=== PATIENT | female | born 1945 | race Caucasian/White ===

== ENCOUNTER 2022-04-02 08:33 | Outpatient (CLI) | payer MEDICARE, SELFPAY ==
--- NOTE | ~2022-04-02 | CT_ITS ---
EXAMINATION: CT LE RT wo con DATE: 04/02/2022 09:13 INDICATION: Right knee primary osteoarthritis. TECHNIQUE: Computed tomography (CT) of the right lower limb was performed without intravenous contras t. Automated exposure control and iterative reconstruction technique were employed. The dose-length p roduct was 1470.83 mGy-cm. COMPARISON: Right knee radiographs 03/11/2022 FINDINGS: Right hip demonstrate normal bone alignment. No fracture. There is moderate right hip osteo arthritis. Right knee demonstrates severe osteoarthritis of the medial and patellofemoral compartment s and mild osteoarthritis of the lateral compartment. There is a small knee joint effusion. There is a moderate-sized Tay's cyst. The talar dome is normal. IMPRESSION: 1. Severe right knee osteoarthritis. 2. Small right knee joint effusion. 3. Moderate-sized right Tay's cyst. 4. Moderate right hip osteoarthritis. Reviewed, dictated and finalized at location A.
== END 2022-04-02 08:34 | disposition home or self-care (01) ==
PROVIDERS: PCP Orthopaedic Surgery; Visit Provider Orthopaedic Surgery
DX: M17.11 Unilateral primary osteoarthritis, right knee (principal); M25.461 Effusion, right knee; M71.21 Synovial cyst of popliteal space [Baker], right knee; M16.11 Unilateral primary osteoarthritis, right hip
CPT/HCPCS: 73700

== ENCOUNTER 2022-04-05 08:52 | Outpatient (CLI) | payer MEDICARE, SELFPAY ==
--- NOTE | 2022-04-05 | ECG_ITS ---
Measurements Intervals [place] Rate: 81 P: 56 SD: 135 QRS: 8 QRSD: 90 T: 36 QT: 347 QTc: 404 Interpretive Statements SINUS RHYTHM NORMAL ECG NO PREVIOUS ECG AVAILABLE FOR COMPARISON Electronically Signed On 04-05-2022 17:00:27 CDT by Juice Gallegos M.D.
[2022-04-05 09:37] LABS: Hematocrit 41.2 % (37.0-47.0); Hemoglobin 13.7 g/dL (12.0-15.0)
[2022-04-05 09:47] LABS: Albumin Level 4.2 g/dL (3.5-5.1); Estimated Glomerular Filt Rate > 60; Glucose 101 mg/dL (65-110)
== END 2022-04-05 08:53 | disposition home or self-care (01) ==
LOC: ANHLAB 08:57
PROVIDERS: PCP Internal Medicine; Visit Provider Orthopaedic Surgery
DX: Z01.818 Encounter for other preprocedural examination (principal); M17.11 Unilateral primary osteoarthritis, right knee; I10 Essential (primary) hypertension
CPT/HCPCS: 36415; 82040; 82565; 82947; 85014; 85018; 93005

== ENCOUNTER 2022-05-05 07:52 | Outpatient (CLI) | payer MEDICARE, SELFPAY ==
[2022-05-05 09:31] LABS: Basophils Absolute Auto 0.1 K/mm3 (0.0-0.1); Basophils Percent Auto 1.4 % (0.2-1.2); Eosinophils Absolute Auto 0.6 K/mm3 (0-0.3); Eosinophils Percent Auto 6.9 % (0-4.4); Hematocrit 43.5 % (37.0-47.0); Hemoglobin 14.2 g/dL (12.0-15.0); Immature Granulocyte Absolute 0.02 K/mm3 (0.00-0.031); Immature Granulocyte Percent A 0.2 % (0-0.5); Lymphocytes Absolute Auto 1.75 K/mm3 (0.9-3.2); Lymphocytes Percent Auto 21.8 % (18.3-44.2); Mean Corpuscular HGB Conc 32.6 g/dl (32-36); Mean Corpuscular Hemoglobin 31.4 pg (26-34); Mean Corpuscular Volume 96.2 fl (80-100); Mean Platelet Volume 9.4 fl (7.4-10.4); Monocytes Absolute Auto 0.6 K/mm3 (0.1-0.6); Monocytes Percent Auto 7.9 % (2.6-8.5); Neutrophils Percent Auto 61.8 % (45.5-73.1); Platelet Count Result 282 k/mm3 (150-375); Red Blood Count 4.52 M/mm3 (4.2-5.4); Red Cell Distribution Width 13.2 % (11.5-14.5)
[2022-05-05 09:57] LABS: Anion Gap 8 mmol/L (8-16); Blood Urea Nitrogen 19 mg/dL (7-17); Calcium 9.6 mg/dL (8.4-10.2); Carbon Dioxide 31 mmol/L (22-30); Chloride 99 mmol/L (98-107); Estimated Glomerular Filt Rate > 60; Glucose 105 mg/dL (65-110); Potassium 3.8 mmol/L (3.4-5.0); Sodium 138 mmol/L (137-145)
[2022-05-05 10:12] LABS: Urine Cotinine NEGATIVE
[2022-05-05 10:28] LABS: Hemoglobin A1C 5.7 % (<5.7)
== END 2022-05-05 07:53 | disposition home or self-care (01) ==
LOC: ANHSURGERY 08:06
PROVIDERS: Anesthesiology; PCP Internal Medicine; Visit Provider Orthopaedic Surgery
DX: Z01.812 Encounter for preprocedural laboratory examination (principal); M17.11 Unilateral primary osteoarthritis, right knee; Z51.81 Encounter for therapeutic drug level monitoring; Z79.899 Other long term (current) drug therapy
CPT/HCPCS: 80048; 80307; 83036; 85025; 87081

== ENCOUNTER 2022-06-01 00:54 | Day surgery (SDC) | payer MEDICARE, SELFPAY ==
--- NOTE | 2022-05-05 07:49 | PC.NURSE ---
PRE-OP INSTRUCTIONS, PLEASE READ CAREFULLY Report to the Outpatient Waiting Room, entrance under the green pavilion located off [facility], at time _0600_ on date _06/01/22_. OR Time: _0730_. PACK A SMALL OVERNIGHT BAG AND LEAVE IN THE CAR. Time changes happen often and if your time is changed the preop area will call you the afternoon before. - You and your visitor will be asked to self-screen and do not enter if you have any COVID symptoms. - A mask is required within the hospital. -Only one visitor and NO children visitors are allowed at this time. - The patient visitor is requested to leave or wait in car when not with patient due to restrictions. - VISITING HOURS 10AM-8PM, PARK IN FRONT PARKING LOT AND USE MAIN HOSPITAL ENTRANCE 1 Patients may have clear liquids (water, carbonated beverages, clear teas, apple juice) until 3 hours prior to surgery (0430 AM) with a maximum of 20 ounces. - No food from midnight until time of surgery Take the following medications with a SIP of water the morning of surgery: _FELODIPINE, METOPROLOL, TRAMADOL IF NEEDED_ Medications to discontinue per DR. MORALES - _DICLOFENAC 7 DAYS PRIOR TO SURGERY, Date to take last dose 05/24/22_ Medications to discontinue per ANESTHESIA - _VITAMINS 3 DAYS PRIOR TO SURGERY, Date to take last dose 05/28/22_ Please no make-up, nail south african, hairspray, perfume, deodorant, or body powder the day of surgery. No jewelry (including any body piercings) or valuables the day of surgery, leave them at home. Please take a shower or bath the night before, or the morning of, surgery with an antibacterial soap. Wear comfortable, loose fitting clothing. - Jewelry must be removed prior to entering the operating room. Rings and piercings that are not removed may be cut off. - The hospital will not accept responsibility for valuables. - Please leave all valuables, including medications, at home the day of surgery. If you are going home after surgery, a licensed crew car driver must drive you home. - NO public transportation without another adult. - We recommend that an adult stay with you for 24 hours following discharge. - We also recommend that you do not drive, make important decision, drink alcoholic beverages, or take any drugs that were not prescribed by your health care provider for at least 24 hours after your discharge time. Follow any additional instructions given to you from your surgeon. TOTAL JOINT CLASS 05/12/22 @ 1000AM, PARK IN FRONT PARKING LOT AND USE MAIN HOSPITAL ENTRANCE 1 - LOWER LEVEL If you or anyone in your household have experienced Covid symptoms in the past week, please notify your surgeon or the nurse liaison at the phone number below for possible testing. Instructions given to ___PT and asked if any additional questions and then verbalized understanding. Patient advised to call surgeon office or pre surgery nurse liaison [phone] if any additional questions.
[2022-05-05 08:33] VITALS: BP 168/90; PULSE 84; RESP 18; TEMP 36.8; O2SAT 97; BMI 29.4
--- NOTE | 2022-05-31 09:53 | WPDANESEPPF ---
Anes - Initial Pre Proc Eval Procedure: Operation Date: 06/01/22 07:30 Proposed Procedures p Right Custom Total Knee Arthroplasty - Conner Pink MD Date/Time: 05/31/22 09:53 Surgeon: Conner Pink MD Pre Op Diagnosis: Prim O A Right Knee Patient Data Age: 77 Gender: F Height: 1.54 m Weight: 69.5 kg Last Vital Signs Temp 36.8 C 05/05/22 08:33 Pulse 84 05/05/22 08:33 Resp 18 05/05/22 08:33 BP 168/90 H 05/05/22 08:33 Pulse Ox 97 05/05/22 08:33 O2 Del Method Room Air 05/05/22 08:33 Allergies Allergy/AdvReac Type Severity Reaction Status Date / Time moxifloxacin Allergy Unknown Rash Verified 06/01/22 06:02 Home Medications Medication Instructions Recorded Confirmed Type diclofenac sodium 75 mg 75 mg PO BID 06/26/21 06/01/22 History tablet,delayed release felodipine 5 mg tablet,extended 5 mg PO DAILY 06/26/21 06/01/22 History release 24 hr hydrochlorothiazide 25 mg tablet 12.5 mg PO DAILY 06/26/21 06/01/22 History losartan 100 mg tablet 100 mg PO DAILY 06/26/21 06/01/22 History metoprolol succinate 100 mg 100 mg PO DAILY 06/26/21 06/01/22 History tablet,extended release 24 hr tramadol 50 mg tablet 50 mg PO Q6H PRN Pain 06/26/21 06/01/22 History ascorbic acid (vitamin C) 250 mg 250 mg PO QAM 05/05/22 06/01/22 History tablet (Vitamin C) calcium 500 mg tablet 1,000 mg QAM 05/05/22 06/01/22 History cholecalciferol (vitamin D3) 25 25 mcg PO QAM 05/05/22 06/01/22 History mcg (1,000 unit) capsule multivitamin 2 tablet PO QAM 05/05/22 06/01/22 History ECG: Date of Service: 04/05/22 Procedure(s): CA 12 lead EKG Accession Number(s): [id number] cc: ~ ? Measurements Intervals? [place]? Rate: ? 81 ? P:? 56 [place]: ? 135? QRS:? 8 QRSD: ? 90 ? T:? 36 QT: ? 347? QTc:? 404? Interpretive Statements SINUS RHYTHM NORMAL ECG NO PREVIOUS ECG AVAILABLE FOR COMPARISON Electronically Signed On 04-05-2022 17:00:27 CDT by Juice Gallegos M.D. Patient hx anesthesia problems: none Family hx anesthesia problems: none Results Review: All pre-operative results and documents have been reviewed as part of the pre-operative evaluation. [facility] Past Medical History Medical History (Updated 05/31/22 @ 09:54 by Erik Calvillo MD) Arthritis of right knee Chronic GERD History of stress test Hypertension PONV (postoperative nausea and vomiting) Surgical History Surgical History History of meniscectomy of left knee (~2013) History of thyroid surgery (~1998) Cyst Removed Hx of meniscectomy of right knee Social History Social History Smoking status: Never smoker Second hand tobacco smoke exposure: Yes Additional smoking assessment comments: PT DENIES ALL FORMS OF TOBACCO USE Alcohol intake: never Substance use: never Substance use type: does not use Living arrangements: with family Spiritual care concerns: No Anes - Eval Final PreProcedure Day of Procedure 05/31/22 09:53 Patient weight: overweight Heart: regular rate and rhythm Lungs: clear to auscultation and normal air movement Airway: Mallampati scale class II Neurological: alert and oriented Last oral intake: >/= 8 hours ASA classification: III Emergent: no Anesthetic plan: proceed Anesthesia type and monitoring: general LMA Results Review: All pre-operative results and documents have been reviewed as part of the pre-operative evaluation. Informed Consent: The patient's anesthetic plan and its attendant risks and benefits were discussed with the patient/family/POA. Questions were solicit
--- NOTE | 2022-05-31 09:55 | WPDANESPNB ---
Anes - Peripheral Nerve Block Date/Time: 05/31/22 09:55 I have discussed with the patient/family/POA the placement of a peripheral nerve block for post-operative pain management, including associated risks, benefits, complications, and side effects. Alternative methods of post-operative analgesia were detailed. Questions were solicited and answers provided to the satisfaction of the patient/family/POA. Time-Out: A pre-procedural Time-Out was completed immediately before starting the procedure and confirmed: Patient Identification, Site, Procedure, Patient Position and the Availability of Requisite Equipment. Clinical Indications: Acute post-operative pain management requested by the operative surgeon. Nerve Block Insertion Note Anes-nerve block: adductor canal right Patient position: supine Skin prep: chlorhexidine Needle: 22 gauge, stimulating, insulated echogenic needle. Needle length: 80 mm Technique: ultrasound Technique comment: in plane Injectate: bupivacaine 0.5% with epi 5 mcg/ml (30cc) Observations: tolerated well Complications: none Procedure start time:: 725 Procedure end time:: 730
[2022-06-01] VITALS (16 sets, daily range): BP systolic 105–151; BP diastolic 64–102; PULSE 90–102; RESP 14–21; TEMP 36.3–37.4; O2SAT 91–100
--- NOTE | ~2022-06-01 | XR_ITS ---
EXAMINATION: XR knee RT 2V DATE: 06/01/2022 10:44 INDICATION: Postoperative evaluation following right total knee arthroplasty. TECHNIQUE: Anteroposterior and lateral views of the right knee were obtained. COMPARISON: 03/11/2022 FINDINGS: Right total knee arthroplasty with patellar resurfacing appears well seated and in near anatomic alig nment. No fractures identified. Expected postoperative subcutaneous and intra-articular gas. IMPRESSION: 1. Right total knee arthroplasty, negative for postoperative purposes. Reviewed, dictated and finalized at location A.
[2022-06-01] MEDS: ACETAMINOPHEN 500 MG TABLET 1000 MG PO (06:16)
[2022-06-01] MEDS: LACTATED RINGERS 1,000 ML 30 ML IV CONT ×2 (06:42→10:04)
[2022-06-01] MEDS: TRANEXAMIC ACID 1,000MG/ISO100 1,000 MG/100 ML BAG 200 MG IVPB (06:57)
--- NOTE | 2022-06-01 07:26 | WPDHPUPDATE1 ---
History and Physical Update Update Date/Time: 06/01/22 07:26 History and Physical has been reviewed, including an updated exam of the patient. There are NO changes in the patient's condition. Risks, benefits, and alternatives have been discussed and questions answered. Patient agrees to proceed with procedure.
[2022-06-01] MEDS: ceFAZolin 2 GM/D5W 50 ML 2 GM/50 ML BAG IVPB ×2 (07:38→15:38)
[2022-06-01] MEDS: GENTAMICIN BONE CEMENT REFOBACIN 1 EACH TOPICAL (08:10)
[2022-06-01] MEDS: MIDAZOLAM HCL (*CRX) 2 MG/2 ML VIAL 1 MG IV PUSH (10:14)
[2022-06-01] MEDS: fentaNYL CITRATE INJ (*CRX) 100 MCG/2 ML VIAL 25 MCG IV PUSH ×6 (10:28→11:25)
--- NOTE | 2022-06-01 10:43 | W.PM.PROC2 ---
Procedure Note - Detailed Date of Procedure 06/01/22 Pre-op Diagnosis Prim O A Right Knee Post-op Diagnosis Same Procedure Performed Total knee arthroplasty, right Surgeon Conner Pink MD Anesthesia General and Regional (Subsartorial block.) Findings Custom TKA. Good bone quality. No releases required. Description of Procedure Preoperative antibiotics were given. The limb was prepped and draped in the usual sterile fashion with a well-padded tourniquet high on the thigh. The limb was exsanguinated and the tourniquet inflated to 300 mmHg. A longitudinal incision was created just medial to the patella. A trivector approach to the knee was performed. Arthrotomy was taken down through the joint capsule. No significant releases were initially taken. The femur was exposed and the F1 jig was applied. The coring tool was used to remove the cartilage for the F2 jig to sit flush with the bone. The jig was pinned and the distal cut carefully taken. Caliper measurements confirmed appropriate bony resections according to the preoperative templated plan. The F4 cutting jig for the femur was applied, at the standard rotation. The AP and anterior chamfer cuts were taken. The F5 jig was applied and the posterior chamfer cuts were taken. The tibia was prepared using the T1 jig, after removing cartilage for the jig contact points. Proper alignment was checked with the alignment alba. The tibia was cut using the T1u guide. Gap balancing was performed. Gap measurements were taken and the knee was trialed. Excellent alignment and soft tissue balancing was confirmed. The posterior cruciate ligament was recessed along the proximal tibia. The patella was cut for resurfacing. Three lug holes were drilled. Meniscal remnants were removed. The trial components were assembled. Excellent range of motion and proper soft tissue balancing were confirmed throughout the full range of motion. Patellar tracking was excellent. The knee was copiously irrigated periodically throughout the procedure. The real implants were cemented into position. Excess cement was carefully removed. The wound was closed in layers with interrupted #1 Vicryl suture, 2-0 strata fix suture, 0 strata fix suture, 2-0 strata fix suture. Steri-Strips placed on the skin with the knee flexed. Sterile bulky dressing applied. The patient was brought to the recovery room in stable condition. There were no complications. Implants [employer]form[employer] Custom total knee arthroplasty. Cemented. Cruciate retaining. 6B insert. 32 mm round patella. Estimated Blood Loss -20.0 Drains No Complications No immediate complications Condition Stable Disposition PACU [facility] Billing Surgery - Charge Forward: Surgery Billing
[2022-06-01] MEDS: SODIUM CHLORIDE 0.9% IV 1,000 ML 125 ML IV CONT (12:49)
[2022-06-01] MEDS: oxyCODONE HCL (*CRX) 5 MG TAB IR PO (12:54)
--- NOTE | 2022-06-01 12:59 | ADMGEN ---
This patient, Cortney Bradford, was admitted to Medical Room 258-. Patient/family oriented to hospital policies and general routines including ID bracelet, bed and alarms, visiting hours, pain management, procedures, bathroom and other care routines, personal items, smoking policy, room service/diet, and visiting hours. Information on how to activate the Rapid Response Team has been discussed. Patient/Family are encouraged to report perceived risks to care and to ask questions if they do not understand what they are told or what they should do. Patient in bed resting comfortably. Family at bedside
[2022-06-01] MEDS: KETOROLAC 15 MG/ML VIAL (*BKC) IV PUSH ×2 (15:36→20:52)
[2022-06-01] MEDS: ASPIRIN 81 MG ENTERIC TABLET PO (16:37)
[2022-06-01] MEDS: SENNA/DOCUSATE SODIUM TABLET 2 TAB PO (16:37)
[2022-06-02] MEDS: ceFAZolin 2 GM/D5W 50 ML 2 GM/50 ML BAG IVPB ×2 (00:02→09:13)
[2022-06-02 01:33] VITALS: BP 126/80; PULSE 94; RESP 18; TEMP 37.2; O2SAT 97
[2022-06-02] MEDS: KETOROLAC 15 MG/ML VIAL (*BKC) IV PUSH ×2 (02:16→09:14)
[2022-06-02 05:25] VITALS: BP 123/63; PULSE 90; RESP 18; TEMP 36.7; O2SAT 98
[2022-06-02] MEDS: oxyCODONE HCL (*CRX) 5 MG TAB IR PO ×2 (05:33→09:17)
[2022-06-02 05:42] LABS: Basophils Percent Auto 0.3 % (0.2-1.2); Eosinophils Percent Auto 0.2 % (0-4.4); Hematocrit 36.3 % (37.0-47.0); Hemoglobin 11.8 g/dL (12.0-15.0); Immature Granulocyte Absolute 0.04 K/mm3 (0.00-0.031); Immature Granulocyte Percent A 0.3 % (0-0.5); Lymphocytes Absolute Auto 2.18 K/mm3 (0.9-3.2); Lymphocytes Percent Auto 16.4 % (18.3-44.2); Mean Corpuscular HGB Conc 32.5 g/dl (32-36); Mean Corpuscular Hemoglobin 31.6 pg (26-34); Mean Corpuscular Volume 97.3 fl (80-100); Mean Platelet Volume 9.3 fl (7.4-10.4); Monocytes Absolute Auto 1.9 K/mm3 (0.1-0.6); Monocytes Percent Auto 14.6 % (2.6-8.5); Neutrophils Absolute Auto 9.1 K/mm3 (1.3-6.7); Neutrophils Percent Auto 68.2 % (45.5-73.1); Platelet Count Result 241 k/mm3 (150-375); Red Blood Count 3.73 M/mm3 (4.2-5.4); Red Cell Distribution Width 13.3 % (11.5-14.5); White Blood Count 13.3 K/mm3 (4.5-10.0)
[2022-06-02 05:50] LABS: Anion Gap 8 mmol/L (8-16); Blood Urea Nitrogen 14 mg/dL (7-17); Calcium 8.5 mg/dL (8.4-10.2); Carbon Dioxide 31 mmol/L (22-30); Chloride 101 mmol/L (98-107); Estimated CRCL calculation 52 ml/min; Estimated Glomerular Filt Rate > 60; Glucose 108 mg/dL (65-110); Potassium 3.4 mmol/L (3.4-5.0); Sodium 140 mmol/L (137-145)
--- NOTE | 2022-06-02 07:52 | WPDANESPN ---
Anes - Prog Note Post-Op Date/Time: 06/02/22 07:52 Vital Signs: Last Vital Signs Temp 36.7 C 06/02/22 05:25 Pulse 90 06/02/22 05:25 Resp 18 06/02/22 05:25 BP 123/63 06/02/22 05:25 Pulse Ox 98 06/02/22 05:25 O2 Del Method Room Air 06/01/22 19:43 O2 Flow Rate 2 06/01/22 13:11 Pain Score (VAS): 0 I/O: Intake & Output 06/01/22 06/01/22 06/02/22 15:59 23:59 07:59 Intake Total 850 150 400 Output Total 200 Balance 850 150 200 Laboratory Tests 06/02/22 05:32 06/02/22 05:32 06/01/22 06/02/22 06/02/22 06:38 05:32 05:32 WBC 13.3 H RBC 3.73 L Hgb 11.8 L Hct 36.3 L MCV 97.3 MCH 31.6 MCHC 32.5 RDW 13.3 Plt Count 241 MPV 9.3 Immature Gran % (Auto) 0.3 Neut % (Auto) 68.2 Lymph % (Auto) 16.4 L [place] % (Auto) 14.6 H Eos % (Auto) 0.2 Baso % (Auto) 0.3 Lymph # (Auto) 2.18 [place] # (Auto) 1.9 H Eos # (Auto) 0.0 Baso # (Auto) 0.0 Abs Immat Gran (auto) 0.04 H Absolute Neuts (auto) 9.1 H Absolute Nucleated RBC 0.0 Nucleated RBC % 0.0 Sodium 140 Potassium 3.4 Chloride 101 Carbon Dioxide 31 H Anion Gap 8 BUN 14 D Creatinine 0.70 Estim Creat Clear Calc 52 Estimated GFR > 60 Glucose 108 Calcium 8.5 Blood Type A Positive Antibody Screen Negative Patient Feedback: Patient satisfied with anesthetic care.
--- NOTE | 2022-06-02 08:56 | PM.DS ---
DS: Admitting Diagnosis Discharge Date 06/02/22 Admitting Diagnosis OA knee Right DS: Discharge Diagnosis Discharge Diagnosis (1) Status post total right knee replacement: Code(s): Z96.651 - Presence of right artificial knee joint Status: Acute Assessment and Plan: Postop day 1: Right total knee arthroplasty. Patient tolerated procedure well. No complications. Pain manageable with pain medication. No numbness or tingling. We had a lengthy discussion regarding postoperative wound care, limitations, expectations, and exercises. Patient shows good understanding. She has had initial physical therapy and is tolerating it well. DVT prophylaxis: 81 mg baby aspirin b.i.d. for 14 days. Pain medication: Percocet. Prednisone. Continue home diclofenac. Patient has followup appointment with Dr. Pink in 3 weeks. DS: Summary Hospital Course Reason for hospitalization: Total knee arthroplasty Hospital Course: Patient tolerated procedure well. Has had initial PT/OT. No complications. Pain well managed. Status at Discharge Functional status at discharge: uses cane/walker Overall status at discharge: patient is progressing back to baseline Time Spent with Patient Time attestation: Total time spent providing and/or coordinating discharge services: Exam Narrative: Overweight 77 y/o female. Resting comfortably in chair. No acute distress. A&O x3. Wearing compression socks bilaterally. Dressing intact with no drainage. Moderate swelling. Small area of ecchymosis. No erythema. No hematoma. Good early range of motion. Calf nontender. Neurologic status intact. No varicosities. Distal pulses palpable. DS: Data Data Completed and Pending Labs on day of discharge: Labs from last 24 hours 06/02/22 06/02/22 05:32 05:32 WBC 13.3 H RBC 3.73 L Hgb 11.8 L Hct 36.3 L MCV 97.3 MCH 31.6 MCHC 32.5 RDW 13.3 Plt Count 241 MPV 9.3 Immature Gran % (Auto) 0.3 Neut % (Auto) 68.2 Lymph % (Auto) 16.4 L [place] % (Auto) 14.6 H Eos % (Auto) 0.2 Baso % (Auto) 0.3 Lymph # (Auto) 2.18 [place] # (Auto) 1.9 H Eos # (Auto) 0.0 Baso # (Auto) 0.0 Abs Immat Gran (auto) 0.04 H Absolute Neuts (auto) 9.1 H Absolute Nucleated RBC 0.0 Nucleated RBC % 0.0 Sodium 140 Potassium 3.4 Chloride 101 Carbon Dioxide 31 H Anion Gap 8 BUN 14 D Creatinine 0.70 Estim Creat Clear Calc 52 Estimated GFR > 60 Glucose 108 Calcium 8.5 Discharge Plan Discharge Patient Disposition: Home, Self-Care Discharge Instructions: See green instruction sheet Stand Alone Forms: General Discharge Instructions Follow-up/Referrals: Iliana Ramírez PA [Physician [employer] [facility]] - Discharge Medications: New prednisone 5 mg tablet 5 mg PO DAILY 21 Days Qty: 21 0RF aspirin 81 mg tablet,delayed release (DR/EC) 81 mg PO BID 14 Days Qty: 28 0RF oxycodone-acetaminophen 5-325 mg tablet 1 - 2 tablet PO Q4-6H MDD 6 PRN (Reason: pain) Qty: 30 0RF Continued metoprolol succinate 100 mg tablet extended release 24 hr 100 mg PO DAILY Label Comments: QAM felodipine 5 mg tablet extended release 24 hr 5 mg PO DAILY Label Comments: QAM losartan 100 mg tablet 100 mg PO DAILY Label Comments: QAM hydrochlorothiazide 25 mg tablet 12.5 mg PO DAILY Label Comments: QAM diclofenac sodium 75 mg tablet,delayed release (DR/EC) 75 mg PO DAILY Label Comments: DAILY QAM multivitamin Tablet 2 tablet PO QAM calcium 500 mg Tablet 1,000 mg QAM ascorbic acid (vitamin C) [Vitamin C] 250 mg Tablet 250 mg PO QAM cholecalciferol (vitamin D3) 25 mcg (1,000 unit) Capsule 25 mcg PO QAM Held tramadol 50 mg tablet 50 mg PO Q6H PRN (Reason: Pain) Hold Instructions: Resume on 06/16/22. Hold while taking oxycodone.
[2022-06-02 09:07] VITALS: BP 155/75; PULSE 97; RESP 16; O2SAT 97
[2022-06-02] MEDS: FELODIPINE 5 MG TAB CR PO (09:13)
[2022-06-02] MEDS: ASCORBIC ACID 250 MG TABLET PO (09:13)
[2022-06-02] MEDS: ASPIRIN 81 MG ENTERIC TABLET PO (09:13)
[2022-06-02] MEDS: SENNA/DOCUSATE SODIUM TABLET 2 TAB PO (09:13)
[2022-06-02 09:14] VITALS: PULSE 78
[2022-06-02] MEDS: METOPROLOL SUCCINATE EXT REL 100 MG TABCR PO (09:14)
[2022-06-02] MEDS: hydroCHLOROthiazide 12.5 MG CAPSULE PO (09:14)
[2022-06-02] MEDS: LOSARTAN POTASSIUM 100 MG TABLET PO (09:14)
[2022-06-02] MEDS: MULTIVITAMINS THERAPEUTIC TAB (*BKC) 2 TABLET PO (09:14)
[2022-06-02] MEDS: polyethylene glycoL 3350 17 GM POWD.PACK PO (09:15)
[2022-06-02] MEDS: CHOLECALCIFEROL 1,000 UNITS TABLET 1000 UNITS PO (09:15)
[2022-06-02 10:00] VITALS: BP 144/67; PULSE 93; RESP 16; TEMP 37; O2SAT 97
[2022-06-02] MEDS: predniSONE 5 MG TABLET PO (10:10)
--- NOTE | 2022-06-02 13:50 | PC.NURSE ---
On 06/02/22, the student, [Kendra Aaron], provided care and [facility] on this patient. I have reviewed the student's documentation and agree with the findings.
[2022-06-02 14:00] VITALS: BP 133/65; PULSE 93; RESP 24; TEMP 36.8; O2SAT 95
[2022-06-02] MEDS: oxyCODONE HCL (*CRX) 5 MG TAB IR 10 MG PO (14:47)
== END 2022-06-02 15:05 | disposition home or self-care (01) ==
LOC: ANHSURGERY 11:48 → ANH2MED 11:57
PROVIDERS: PCP Internal Medicine; Visit Provider Orthopaedic Surgery
PROC: (CPT 27447; principal; 2022-06-01 07:30)
DX: M17.11 Unilateral primary osteoarthritis, right knee (principal); G89.18 Other acute postprocedural pain; I10 Essential (primary) hypertension; K21.9 Gastro-esophageal reflux disease without esophagitis
CPT/HCPCS: 27447; 64447; 36415; 73560; 80048; 85025; 86850; 86900; 86901; 97110; 97116; 97162; 97165; 97530; 97535; A9270; C1713; C1776; J0131; J0171; J0690; J1100; J1630; J1885; J2250; J2270; J2405; J2704; J2795; J3010; J7030; J7120; J7512

== ENCOUNTER → 2022-12-29 09:25 | Outpatient (CLI) | payer MEDICARE, SELFPAY ==
--- NOTE | ~2022-12-29 | MR_ITS ---
EXAMINATION: MR brain/brain stem wo/w con DATE: 12/29/2022 10:30 INDICATION: Numbness and tingling in the right arm and leg. Dizziness and headache. TECHNIQUE: Magnetic resonance imaging (MRI) of the brain and brainstem was performed without and with 13 mL MultiHance intravenous contrast. COMPARISON: None. FINDINGS: There are scattered areas of nonspecific increased T2-weighted signal intensity in the cere bral white matter and [place]. There is an old infarct in the left thalamus. There is no intracranial he morrhage, acute infarction, or abnormal intracranial mass lesion. The ventricles are normal in size. The paranasal sinuses are clear. The orbits are normal. The mastoid air cells are normal. IMPRESSION: 1. Old lacunar infarct in the left thalamus. 2. Moderate nonspecific cerebral white matter disease and pontine disease, which likely represents ch ronic small vessel ischemic disease. Reviewed, dictated and finalized at location A. IMPRESSION: 1. Old lacunar infarct in the left thalamus. 2. Moderate nonspecific cerebral white matter disease and pontine disease, whic h likely represents chronic small vessel ischemic disease.
== END ==
PROVIDERS: PCP Internal Medicine; Visit Provider Internal Medicine
DX: G54.8 Other nerve root and plexus disorders (principal); M54.2 Cervicalgia; R20.9 Unspecified disturbances of skin sensation; R42 Dizziness and giddiness; R90.82 White matter disease, unspecified
CPT/HCPCS: 70553; A9577

== ENCOUNTER 2023-08-02 09:44 | Outpatient (CLI) | payer MEDICARE, SELFPAY ==
--- NOTE | ~2023-08-02 | XR_ITS ---
XR knee LT 3V 08/02/2023 10:16 Indication: Left knee pain Procedure: 4 views left knee Comparison: No prior studies for comparison. Findings: Moderate-severe tricompartment osteoarthritis of the left knee. No fracture or traumatic ma lalignment. No joint effusion. No foreign bodies. Impression: 1: Moderate-severe tricompartment osteoarthritis of the left knee. Reviewed, dictated and finalized at location L. RTAINMENT DIRECTOR Impression: 1: Moderate-severe tricompartment osteoarthritis of the left knee.
== END 2023-08-02 09:45 | disposition home or self-care (01) ==
PROVIDERS: PCP Internal Medicine; Visit Provider Orthopaedic Surgery
DX: M17.12 Unilateral primary osteoarthritis, left knee (principal)
CPT/HCPCS: 73562

== ENCOUNTER 2023-12-01 10:25 | Outpatient (CLI) | payer MEDICARE, SELFPAY ==
--- NOTE | ~2023-12-01 | XR_ITS ---
Left Knee Technique: AP, lateral, and sunrise views were obtained. Clinical History: Osteoarthritis COMPARISON: 08/02/2023 Findings: No fracture or dislocation is seen. There is medial compartment narrowing. There is mild tr icompartment spurring. Stable possible loose body versus other soft tissue constipation posterior asp ect of the knee. No joint effusion is seen. Impression: Stable osteoarthritic change. Stable possible loose body posteriorly versus other soft tissue mineralization. Reviewed, dictated and finalized at location M. Impression: Stable osteoarthritic change. Stable possible loose body posteriorly versus other soft tissue mineralization.
== END 2023-12-01 10:26 | disposition home or self-care (01) ==
PROVIDERS: PCP Internal Medicine; Visit Provider Orthopaedic Surgery
DX: M17.12 Unilateral primary osteoarthritis, left knee (principal)
CPT/HCPCS: 73564

== ENCOUNTER 2024-06-21 11:07 | Outpatient (CLI) | payer MEDICARE, SELFPAY ==
--- NOTE | ~2024-06-21 | XR_ITS ---
Left Knee Technique: AP, lateral, and sunrise views were obtained. Clinical History: Osteoarthritis Findings: No fracture or dislocation is seen. There is medial compartment narrowing. There is mild tr icompartmental degenerative spurring.. Soft tissues are unremarkable. No joint effusion is seen. Impression: Degenerative change, as above, with mild tricompartmental spurring and medial compartment narrowing. Reviewed, dictated and finalized at location M. CTOR TRUST Impression: Degenerative change, as above, with mild tricompartmental spurring and medial c ompartment narrowing.
== END 2024-06-21 11:08 | disposition home or self-care (01) ==
PROVIDERS: Visit Provider Orthopaedic Surgery
DX: M17.12 Unilateral primary osteoarthritis, left knee (principal)
CPT/HCPCS: 73564